=== PATIENT | female | born 1960 | race Caucasian/White ===

== ENCOUNTER 2024-06-10 17:00 | Emergency (ER) | payer OTHER ==
[~2024-06-10] VITALS: Ht 152.4 cm; Wt 42.6 kg
[2024-06-10 19:10] VITALS: BP 164/88; TEMP 98.6; O2SAT 98
== END 2024-06-10 19:10 | disposition home or self-care (01) ==
LOC: ER 18:05
DX: R07.1 Chest pain on breathing (principal); G89.29 Other chronic pain; I10 Essential (primary) hypertension; Z88.1 Allergy status to other antibiotic agents; Z60.2 Problems related to living alone; V43.52XA Car driver injured in collision with other type car in traffic accident, initial encounter; Y93.89 Activity, other specified; Y92.488 Other paved roadways as the place of occurrence of the external cause; Y99.8 Other external cause status
CPT/HCPCS: 71111-TC